=== PATIENT | male | born 1970 | race Caucasian/White ===

== ENCOUNTER 2023-03-14 09:32 | Inpatient (IN) | payer MEDICAID, SELFPAY ==
[2023-03-14 09:43] VITALS: BP 166/98; PULSE 91; RESP 22; TEMP 37.3; O2SAT 96
[2023-03-14] MEDS: LORazepam 2 mg/mL INJ 1 mL IM ×2 (10:04→18:34)
[2023-03-14 10:13] VITALS: RESP 20
--- NOTE | 2023-03-14 10:15 | PC.NURSE ---
Pt is cooperative with this RN and allowed nurse to give IM injection of ativan. Pt refused Geodon at this time. Pt is in green paper scrubs, no belongings at bedside. Security Gilberto and PSA Abdulkadir at bedside.
[2023-03-14 10:32] LABS: Basophils # 0.1 10^3/uL (0.0-0.1); Basophils % 0.5 %; Eosinophils % 0.2 %; Hematocrit 45.5 % (42.0-52.0); Hemoglobin 15.1 g/dL (11.7-16.6); Lymphocytes # 1.8 10^3/uL (0.8-4.8); Lymphocytes % 16.1 %; Mean Corpuscular HGB Conc 33.2 g/dL (30.0-36.0); Mean Corpuscular Hemoglobin 30.2 pg (28.0-34.0); Mean Platelet Volume 9.4 fL (7.4-10.4); Monocytes # 0.8 10^3/uL (0.2-0.9); Monocytes % 7.2 %; Neutrophils # 8.26 10^3/uL (1.8-7.7); Neutrophils % 75.7 %; Nucleated Red Blood Cells % 0 %; Platelet Count 232 10^3/cmm (130-400); Red Cell Distribution Width 12.7 % (12.1-15.1); White Blood Count 10.9 10^3/uL (4.0-10.0)
[2023-03-14 10:55] LABS: Alanine Aminotransferase 25 U/L (0-41); Albumin Level 3.9 g/dL (3.5-5.2); Alkaline Phosphatase 77 U/L (40-130); Anion Gap 18.5 (5-19); Aspartate Amino Transferase 28 U/L (0-40); Blood Urea Nitrogen 10 mg/dL (6-20); Calcium 8.7 mg/dL (8.5-10.5); Carbon Dioxide 19 mmol/L (22-29); Chloride 97 mmol/L (98-107); Globulin 2.8 g/dL (1.3-4.6); Glomerular Filtration Rate 88.6 mL/min (90-130); Glucose 98 mg/dL (65-115); Osmolality Calculated 271 mOsm/kg (285-295); Potassium 3.5 mmol/L (3.5-5.1); Sodium 131 mmol/L (136-145); Total Bilirubin 0.7 mg/dL (0.15-1.2); Total Protein 6.7 g/dL (6.6-8.7)
[2023-03-14 10:56] LABS: Acetaminophen < 5.0 ug/mL (10-30); Salicylate < 0.3 mg/dL (3-10)
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
--- NOTE | 2023-03-14 12:29 | PC.NURSE ---
Pt sleeping on left side. Pt has been quiet and asleep. PSA at bedside.
--- NOTE | 2023-03-14 12:30 | PC.NURSE ---
Pt sleeping on left side. PSA at bedside.
[2023-03-14 12:41] VITALS: BP 142/82; PULSE 84; RESP 18; TEMP 36.8; O2SAT 98
[2023-03-14 12:54] VITALS: BP 132/99; PULSE 93; RESP 17; TEMP 36.7; O2SAT 96
[2023-03-14 13:35] LABS: Add Urine Microscopic? NO; Charge for UA Resulting for Rev
[2023-03-14 13:43] LABS: Bilirubin Urine Neg (Negative); Blood Urine Neg (Negative); Glucose Urine UA Norm (Normal); Ketones Urine 2+ (Negative); Leukocyte Esterase Urine Negative (Negative); Nitrate Urine Negative (Negative); Protein Urine Neg (Negative); Urine Appearance Clear (CLEAR); Urine Color Yellow (Yellow); Urobilinogen Urine Norm (Negative); pH Urine 5 (5-7)
[2023-03-14 13:52] LABS: Amphetamines Screen Urine Negative (Negative); Barbiturates Screen Urine Negative (Negative); Benzodiazepines Screen Urine Positive (Negative); Cocaine Screen Urine Negative (Negative); Opiate Screen Urine Negative (Negative); PCP Screen Urine Negative (Negative); THC Screen Urine Positive (Negative)
[2023-03-14 14:00] VITALS: BP 154/79; PULSE 92; RESP 18; TEMP 36.9; O2SAT 99
[2023-03-14] MEDS: diphenhydrAMINE 50 mg/mL SDV 1mL IM (18:34)
[2023-03-14] MEDS: haloperidol inj 5 mg/mL INJ 1 mL IM (18:34)
[2023-03-14 19:40] VITALS: RESP 18
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
[2023-03-15 14:00] VITALS: BP 136/88; PULSE 75; RESP 18; TEMP 36.7; O2SAT 94
[2023-03-15] MEDS: nicotine 2 mg Gum BUCCAL (17:08)
[2023-03-15] MEDS: nicotine 21 mg Patch 1 PATCH TRANSDERMA (20:28)
[2023-03-15] MEDS: LORazepam 2 mg Tablet PO (20:34)
[2023-03-15] MEDS: diphenhydrAMINE 50 mg Capsule PO (20:35)
[2023-03-15] MEDS: haloperidol 5 mg Tablet PO (20:35)
[2023-03-15 20:56] VITALS: RESP 18
[2023-03-15 21:05] VITALS: BP 132/91; PULSE 76; RESP 18; TEMP 37; O2SAT 90
[2023-03-16 06:00] VITALS: RESP 18
[2023-03-16] MEDS: LORazepam 2 mg/mL INJ 1 mL IM (08:29)
[2023-03-16] MEDS: haloperidol inj 5 mg/mL INJ 1 mL IM (08:29)
[2023-03-16] MEDS: diphenhydrAMINE 50 mg/mL SDV 1mL IM (08:29)
[2023-03-16 14:00] VITALS: PULSE 16
[2023-03-16] MEDS: nicotine 21 mg Patch 1 PATCH TRANSDERMA (14:30)
[2023-03-16] MEDS: OLANZapine 5 mg ODT PO (15:37)
[2023-03-16] MEDS: hyDROXYzine 25 mg Capsule 50 MG PO (15:37)
--- NOTE | 2023-03-16 15:45 | PC.NURSE ---
pt in another pt room refused to leave when asked. pt yelling an requesting to leave administered prn vistaril and zyprexia.
--- NOTE | 2023-03-16 17:30 | W.PM.NPUPNS ---
Subjective NPU Subjective: Patient presents today continuing to be resistant to medication and continuing to have very poor impulse control. He has had episodes of cussing at staff and yelling and continues to report that he has no idea why he is here in the first place and why he cannot be allowed to leave the hospital. We talked some and tried to get him to consider an antipsychotic but he continues to refuse and we talked about the need for him to show improvement to avoid a 21-day hold this week. Mental Status Exam MSE Comments: This is an overweight versus obese white male in hospital scrubs with poor grooming grooming and eye contact. No abnormal movements except for psychomotor agitation. Uncooperative with exam in extreme distress. Speech was increased rate and volume. Mood not described, affect irritable. Thought process organized. Thought content: Patient did not answer questions around lethality but did demonstrate some aggression, there were no delusions reported but paranoia and possible persecutory and hyperreligious delusions noted. He did not answer questions surrounding hallucinations but did not appear to be attending to internal stimuli. Attention and concentration appeared limited and memory was unreliable but none were formally tested. He is alert and oriented to person. Insight, judgment and impulse control impaired. Vitals/I&O/Wt Last Vital Signs Temp 98 F 03/16/23 20:20 Pulse 56 L 03/16/23 20:20 Resp 16 03/16/23 20:20 BP 118/67 03/16/23 20:20 Pulse Ox 95 03/16/23 20:20 O2 Del Method Room Air 03/16/23 20:20 03/16/23 03/16/23 03/17/23 14:59 22:59 06:59 Intake Total 800 / 800 Balance 800 / 800 Weight last 48 hrs Weight 124.738 kg Data NPU 03/14/23 10:23 03/14/23 10:23 A&P Assessment and plan (1) Acute psychosis: (2) Suicidal ideation: (3) Hypertension: Plan The patient is a 3-year-old white male with no clear history of mental health challenges with a UDS positive for marijuana and benzodiazepines resistant to given a history and seeming possibly psychotic/delusional at this time. 1. Continue current medication. We will explore whether he will consider an antipsychotic. 2 Continue every 15 minute checks for safety. 3. Encourage individual, group and milieu therapies. 4. Encourage sober living treatment after discharge at the highest level of care to which he is willing to commit 5. Try to get collateral information. Involuntary Hold Information 96 Hour Hold: 96 Hour Involuntary Admission: Yes 96 Hour Hold Ending Date: 02/16/23 96 Hour Hold Ending Time: 00:01 Attestations NPU Medical Necessity Statement*: Inpatient hospitalization is medically necessary and deemed to be the clinically appropriate decision at this time. We will monitor/initiate medications and make changes as indicated. Likely length of stay of 3-5 days. Coding Level of Care Code Acute Code for Chg Fwd Diagnoses Acute psychosis F23 Suicidal ideation R45.851 Hypertension I10
[2023-03-16 20:20] VITALS: BP 118/67; PULSE 56; RESP 16; TEMP 36.6; O2SAT 95
[2023-03-17 06:00] VITALS: RESP 15
[2023-03-17] MEDS: nicotine 2 mg Gum BUCCAL (09:47)
[2023-03-17] MEDS: nicotine 21 mg Patch 1 PATCH TRANSDERMA (12:05)
--- NOTE | 2023-03-17 13:34 | W.PM.NPUPNS ---
Subjective NPU Subjective: Patient presented today reporting that he was feeling better. He spoke to this freelance copywriter as needed for the first time and it is possible that in his experience we are/were. We discussed his behavior over the past 3 days. Including the aggressiveness and nasty verbiage. He was projecting a position of always being kind to people and never hurting anyone and we discussed how divergent that was from his presentation. We additionally discussed his hyperreligious talk about [place] and there being some big hole up there where he was having some restoration meaning. It was hard for him to let go of that. He had no explanation for running naked though he tried to invoke a shower story. We discussed the 96-hour hold being up soon and the likelihood of a 21-day hold submission. He was resistant to medication. Mental Status Exam MSE Comments: This is an overweight versus obese white male in hospital scrubs with poor grooming grooming and somewhat improving eye contact. No abnormal movements except for resolving psychomotor agitation. More cooperative with exam in significantly less distress. Speech was increased rate and volume. Mood described as all right, affect less irritable. Thought process more organized. Thought content: Patient denied suicidal or homicidal ideation, there were no delusions reported but paranoia and possible persecutory and hyperreligious delusions noted. He denied auditory or visual hallucinations but some of the things he described great concerns for such. Attention and concentration appeared improving and memory was improving but still unreliable but none were formally tested. He is alert and oriented x3. Insight, judgment and impulse control limited. Vitals/I&O/Wt Last Vital Signs Temp 98 F 03/16/23 20:20 Pulse 56 L 03/16/23 20:20 Resp 15 03/17/23 06:00 BP 118/67 03/16/23 20:20 Pulse Ox 95 03/16/23 20:20 O2 Del Method Room Air 03/16/23 20:20 Weight last 48 hrs Weight 124.738 kg Data NPU 03/14/23 10:23 03/14/23 10:23 A&P Assessment and plan (1) Acute psychosis: (2) Suicidal ideation: (3) Hypertension: Plan The patient is a 3-year-old white male with no clear history of mental health challenges with a UDS positive for marijuana and benzodiazepines resistant to given a history and seeming possibly psychotic/delusional at this time. 1. Continue current medication. We will continue to offer an antipsychotic. 2 Continue every 15 minute checks for safety. 3. Encourage individual, group and milieu therapies. 4. Encourage sober living treatment after discharge at the highest level of care to which he is willing to commit 5. We will likely need to file for a 21-day hold tomorrow. Involuntary Hold Information 96 Hour Hold: 96 Hour Involuntary Admission: Yes 96 Hour Hold Ending Date: 02/16/23 96 Hour Hold Ending Time: 00:01 Attestations NPU Medical Necessity Statement*: Inpatient hospitalization is medically necessary and deemed to be the clinically appropriate decision at this time. We will monitor/initiate medications and make changes as indicated. Likely length of stay of 3-5 days. Coding Level of Care Code Acute Code for g Fwd Diagnoses Acute psychosis F23 Suicidal ideation R45.851 Hypertension I10
[2023-03-17 14:00] VITALS: BP 135/74; PULSE 73; RESP 18; TEMP 36.7; O2SAT 95
[2023-03-17 21:06] VITALS: BP 150/92; PULSE 80; RESP 18; O2SAT 96
[2023-03-18] MEDS: trazodone 50 mg Tablet PO (02:04)
[2023-03-18 06:00] VITALS: RESP 18
[2023-03-18] MEDS: nicotine 2 mg Gum BUCCAL ×2 (08:54→10:52)
--- NOTE | 2023-03-18 12:20 | W.PM.NPUPNS ---
Subjective NPU Subjective: Presented today reporting that he was doing better refills. We agreed that he was doing better than when he got here but still no explanation for his running naked and hyperreligious behavior. He reports he has had this previously but that he is treated it with vitamins. We discussed wanting to start a medication and he is resistant to that idea and we discussed him needing a little more time before being discharged medication or not and so we discussed that we would file an extension of his hold. Mental Status Exam MSE Comments: This is an overweight versus obese white male in hospital scrubs with limited grooming and somewhat improving eye contact. No abnormal movements except for resolving psychomotor agitation. More cooperative with exam in significantly less distress. Speech was increased rate and volume. Mood described as I think I am ready, affect somewhat less irritable. Thought process more organized. Thought content: Patient denied suicidal or homicidal ideation, there were no delusions reported but paranoia and possible persecutory and hyperreligious delusions noted. He denied auditory or visual hallucinations but some of the things he described great concerns for such. Attention and concentration appeared improving and memory was improving but still unreliable but none were formally tested. He is alert and oriented x3. Insight, judgment and impulse control limited. Vitals/I&O/Wt Last Vital Signs Temp 98.0 F 03/17/23 14:00 Pulse 80 03/17/23 21:06 Resp 18 03/18/23 06:00 BP 150/92 03/17/23 21:06 Pulse Ox 96 03/17/23 21:06 O2 Del Method Room Air 03/17/23 21:06 Weight last 48 hrs Weight 124.738 kg Data NPU 03/14/23 10:23 03/14/23 10:23 A&P Assessment and plan (1) Acute psychosis: (2) Suicidal ideation: (3) Hypertension: Plan The patient is a 3-year-old white male with no clear history of mental health challenges with a UDS positive for marijuana and benzodiazepines resistant to given a history and seeming possibly psychotic/delusional at this time. 1. Continue current medication. We will continue to offer an antipsychotic. 2 Continue every 15 minute checks for safety. 3. Encourage individual, group and milieu therapies. 4. Encourage sober living treatment after discharge at the highest level of care to which he is willing to commit 5. Filed for a 21-day hold. Involuntary Hold Information 96 Hour Hold: 96 Hour Involuntary Admission: Yes 96 Hour Hold Ending Date: 02/16/23 96 Hour Hold Ending Time: 00:01 Attestations NPU Medical Necessity Statement*: Inpatient hospitalization is medically necessary and deemed to be the clinically appropriate decision at this time. We will monitor/initiate medications and make changes as indicated. Likely length of stay of 3-5 days. Coding Level of Care Code Acute Code for Chg Fwd Diagnoses Acute psychosis F23 Suicidal ideation R45.851 Hypertension I10
[2023-03-18] MEDS: nicotine 21 mg Patch 1 PATCH TRANSDERMA (13:28)
[2023-03-18 14:00] VITALS: BP 165/98; PULSE 60; RESP 18; TEMP 36.4; O2SAT 97
[2023-03-18 19:55] VITALS: RESP 18
[2023-03-19 06:00] VITALS: RESP 18
--- NOTE | 2023-03-19 10:31 | PC.NURSE ---
Patient left unit at [address]
--- NOTE | 2023-03-19 13:48 | P.NPUPN_ITS ---
Subjective NPU Subjective: Patient presented today having gone to the court hearing earlier and expressing that he is willing to consider a medication to see if it might help with his psychotic presentation. We discussed the risks, benefits and alternatives of a trial of Abilify and he understood and agreed to proceed as is documented in this note. We continued to discuss his life and the challenges he has had thro ughout the years. Mental Status Exam MSE Comments: This is an overweight versus obese white male in hospital scrubs with limited grooming and somewhat improving eye contact. No abnormal movements except for resolving psychomotor agitation. More cooperative with exam in significantly less distress. Speech was increased rate and volume. Mood described as okay but understand your concerns, affect somewhat less irritable. Thought process more organized. Thought content: Patient denied suicidal or homicidal ideation, there were no delusions reported but paranoia and possible persecutory and hype rreligious delusions noted. He denied auditory or visual hallucinations but some of the things he described great concerns for such. Attention and concentration appeared improving and memory was improving but still unreliable but none were formally tested. He is alert and oriented x3. Insight, judgment and impulse control limited. Vitals/I&O/Wt Last Vital Signs Temp 97.5 F L 03/18/23 14:00 Pulse 60 03/18/23 14:00 Resp 18 03/19/23 06:00 BP 165/98 03/18/23 14:00 Pulse Ox 97 03/18/23 14:00 O2 Del Method Room Air 03/17/23 21:06 Data NPU 03/14/23 10:23 03/14/23 10:23 A&P Assessment and plan (1) Acute psychosis: (2) Suicidal ideation: (3) Hypertension: Plan The patient is a 3-year-old white male with no clear history of mental health challenges with a UDS positive for marijuana and benzodiazepines resistant to given a history and seeming possibly psychotic/delusional at this time. 1. Continue current medication. We will continue to offer an antipsychotic. Started Abilify 5 mg p.o. x1 today 03/19/2023 and 10 mg p.o. every morning moving forward. 2 Continue every 15 minute checks for safety. 3. Encourage individual, group and milieu therapies. 4. Encourage sober living treatment after discharge at the highest level of care to which he is willing to commit 5. Placed on a 21-day hold today 03/19/2023 Involuntary Hold Information 96 Hour Hold: 96 Hour Involuntary Admission: Yes 96 Hour Hold Ending Date: 02/16/23 96 Hour Hold Ending Time: 00:01 Attestations NPU Medical Necessity Statement*: Inpatient hospitalization is medically necessary and deemed to be the clinically appropriate decision at this time. We will monitor/initiate medications and make changes as indicated. Likely length of stay of 3-5 days. Coding Level of Care Code Acute Code for [facility] Fwd Diagnoses Acute psychosis F23 Suicidal ideation R45.851 Hypertension I10
[2023-03-19] MEDS: nicotine 21 mg Patch 1 PATCH TRANSDERMA (13:50)
[2023-03-19 14:00] VITALS: BP 164/98; PULSE 98; RESP 18; TEMP 36.9; O2SAT 95
[2023-03-19] MEDS: ARIPiprazole 10 mg Tablet 5 MG PO (18:21)
[2023-03-19 21:53] VITALS: BP 176/109; PULSE 75; RESP 18; O2SAT 96
[2023-03-19] MEDS: trazodone 50 mg Tablet PO (22:25)
[2023-03-20 06:00] VITALS: BP 162/99; PULSE 65; RESP 17; TEMP 36.6; O2SAT 97
--- NOTE | 2023-03-20 07:52 | P.NPUPN_ITS ---
Subjective NPU Subjective: Patient presented today reporting that he was doing better. He was inquiring about the Abilify that he had started and reports that at this point he has not had any specific side effects will be acknowledged that he was only 1 dose in. We discussed the considering the injection prior to leaving but that Dr. [place] would be here tomorrow and taking over the process. He was pleasant and ap preciative and denied any other issues. Mental Status Exam MSE Comments: This is an overweight versus obese white male in hospital scrubs with improving grooming and eye contact. No abnormal movements. More cooperative with exam in no acute distress. Speech was more normal rate and volume. Mood described as all right, affect congruent and euthymic. Thought process more organized. Thought content: Patient denied suicidal or homicidal ideation, there were no delusions reported or noted. He denied auditory or visual hallucinations. Attention and concentration appeared improving and memory was becoming morebreliable but none were formally tested. He is alert and oriented x3. Insight, judgment and impulse control limited, but improving. Vitals/I&O/Wt Last Vital Signs Temp 98.2 F 03/20/23 21:21 Pulse 78 03/20/23 21:21 Resp 18 03/20/23 21:21 BP 145/95 03/20/23 21:21 Pulse Ox 97 03/20/23 21:21 O2 Del Method Room Air 03/20/23 14:00 Data NPU 03/14/23 10:23 03/14/23 10:23 A&P Assessment and plan (1) Acute psychosis: (2) Suicidal ideation: (3) Hypertension: Plan The patient is a 3-year-old white male with no clear history of mental health challenges with a UDS positive for marijuana and benzodiazepines resistant to given a history and seeming possibly psychotic/delusional at this time. 1. Continue current medication. We will continue to offer an antipsychotic. Started Abilify 5 mg p.o. x1, 03/19/2023 and 10 mg p.o. every morning starting 03/20/2023. We will attempt to get on long-acting injectable. 2 Continue every 15 minute checks for safety. 3. Encourage individual, group and milieu therapies. 4. Encourage sober living treatment after discharge at the highest level of care to which he is willing to commit 5. Placed on a 21-day hold today 03/19/2023 Involuntary Hold Information 96 Hour Hold: 96 Hour Involuntary Admission: Yes 96 Hour Hold Ending Date: 02/16/23 96 Hour Hold Ending Time: 00:01 Attestations NPU Medical Necessity Statement*: Inpatient hospitalization is medically necessary and deemed to be the clinically appropriate decision at this time. We will monitor/initiate medications and make changes as indicated. Likely length of stay of 3-5 days. Coding Level of Care Code Acute Code for Chg Fwd Diagnoses Acute psychosis F23 Suicidal ideation R45.851 Hypertension I10
[2023-03-20] MEDS: lisinopril 10 mg Tablet PO (09:09)
[2023-03-20] MEDS: ARIPiprazole 10 mg Tablet 5 MG PO (09:09)
[2023-03-20] MEDS: nicotine 4 mg lozenge MUCOUS MEM (09:10)
[2023-03-20] MEDS: nicotine 21 mg Patch 1 PATCH TRANSDERMA (10:59)
[2023-03-20 14:00] VITALS: BP 126/77; PULSE 92; RESP 20; TEMP 36.7; O2SAT 95
[2023-03-20] MEDS: docusate sodium 100 mg Capsule PO (21:16)
[2023-03-20] MEDS: trazodone 50 mg Tablet PO (21:19)
[2023-03-20 21:21] VITALS: BP 145/95; PULSE 78; RESP 18; TEMP 36.8; O2SAT 97
[2023-03-21 06:00] VITALS: RESP 18
[2023-03-21] MEDS: nicotine 4 mg lozenge MUCOUS MEM ×5 (08:29→19:00)
[2023-03-21] MEDS: ARIPiprazole 10 mg Tablet 5 MG PO (08:29)
[2023-03-21] MEDS: lisinopril 10 mg Tablet PO (08:29)
[2023-03-21 14:00] VITALS: BP 139/87; PULSE 92; RESP 17; TEMP 36.4; O2SAT 94
--- NOTE | 2023-03-21 16:08 | PC.NURSE ---
out on the patio for group therapy
--- NOTE | 2023-03-21 16:53 | P.NPUPN_ITS ---
Subjective NPU Subjective: The patient is a 53-year-old white male admitted with acute psychosis and agitation. He had reported that he had many things to do when he leaves the NPU. He had reported having previously had mood fluctuations and reported having bigger plans when he left the hospital. He had reported having previous periods of decreased need for sleep and feeling as if his thoughts were moving quickly. He had reported no family history of bipolar disorder. He had reported no side effects to his Abilify at this time. He had reported no prior history of psychiatric treatment. Staff notes the patient was redirectable and stated that he was feeling better on Abilify. Mental Status Exam MSE Comments: This is an overweight versus obese white male in hospital scrubs with improving grooming and eye contact. No abnormal movements. More cooperative with exam in no acute distress. Speech was more normal rate, rhythm and volume. Mood described as good. His affect was mood congruent and euthymic. Thought process was more organized. Thought content: Patient denied suicidal or homicidal ideation, there were no delusions reported or noted. He denied auditory or visual hallucinations. Attention and concentration appeared improving. He is alert and oriented x3. Insight, judgment and impulse control are all limited, but improving. Vitals/I&O/Wt Last Vital Signs Temp 97.5 F L 03/21/23 14:00 Pulse 92 03/21/23 14:00 Resp 17 03/21/23 14:00 BP 139/87 03/21/23 14:00 Pulse Ox 94 03/21/23 14:00 O2 Del Method Room Air 03/20/23 14:00 Data NPU 03/14/23 10:23 03/14/23 10:23 A&P Assessment and plan (1) Acute psychosis: (2) Suicidal ideation: (3) Hypertension: Plan The patient is a 53-year-old white male with no clear history of mental health challenges with a UDS positive for marijuana and benzodiazepines initially resistant to given a history and seeming possibly psychotic/delusional at this time. 1. Increase Abilify to 10mg daily. We will attempt to get on long-acting injectable. 2 Continue every 15 minute checks for safety. 3. Encourage individual, group and milieu therapies. 4. Encourage sober living treatment after discharge at the highest level of care to which he is willing to commit 5. Placed on a 21-day hold today 03/19/2023 Involuntary Hold Information 96 Hour Hold: 96 Hour Involuntary Admission: Yes 96 Hour Hold Ending Date: 02/16/23 96 Hour Hold Ending Time: 00:01 Attestations NPU Medical Necessity Statement*: Inpatient hospitalization is medically necessary and deemed to be the clinically appropriate decision at this time. We will monitor/initiate medications and make changes as indicated. His likely length of stay is 3-5 days. Coding Level of Care Code Acute Code for [facility] Fwd Diagnoses Acute psychosis F23 Suicidal ideation R45.851 Hypertension I10
[2023-03-21] MEDS: trazodone 50 mg Tablet PO ×2 (19:54→21:15)
[2023-03-21 20:10] VITALS: BP 124/85; PULSE 72; RESP 18; TEMP 36.7; O2SAT 99
[2023-03-21] MEDS: nicotine 2 mg Gum BUCCAL (21:15)
[2023-03-22] MEDS: hyDROXYzine 25 mg Capsule 50 MG PO ×2 (01:41→12:40)
[2023-03-22] MEDS: nicotine 4 mg lozenge MUCOUS MEM ×2 (02:59→18:02)
[2023-03-22 06:00] VITALS: RESP 18
[2023-03-22] MEDS: lisinopril 10 mg Tablet PO (08:14)
[2023-03-22] MEDS: ARIPiprazole 10 mg Tablet PO (08:14)
[2023-03-22 08:35] VITALS: BP 147/83; PULSE 112
--- NOTE | 2023-03-22 08:35 | PC.NURSE ---
pt recieved scheduled lisinopril. pulse was 112 and BP was 147/83.
[2023-03-22] MEDS: nicotine 21 mg Patch 1 PATCH TRANSDERMA (08:58)
--- NOTE | 2023-03-22 10:34 | PC.NURSE ---
attended [facility] @ [id number]
[2023-03-22 14:00] VITALS: BP 149/95; PULSE 97; RESP 18; TEMP 36.3; O2SAT 97
[2023-03-22] MEDS: OLANZapine 5 mg ODT PO ×2 (15:37→20:41)
--- NOTE | 2023-03-22 15:37 | PC.NURSE ---
PRN ZYPREXA ZYDIS 5 MG GIVEN PO PER PT C/O FURTHER ANXIETY/AGITATION ALTHOUGH PATIENT IS CALM WHILE CONVERSING WITH STAFF, SMILING A LOT
[2023-03-22] MEDS: ARIPiprazole 10 mg Tablet 5 MG PO (17:03)
--- NOTE | 2023-03-22 17:03 | PC.NURSE ---
Addendum entered by Kylie Salcido RN 03/22/23 17:07: addendum: when pt was asked who he was talking to pt stated elmira, ya know elmira from [employer]. he is my grandpa. then proceeded to laugh. Original Note: pt was in room having a conversation with someone that was not present. pt was speaking out the window cussing and various mumbled words. When pt was
--- NOTE | 2023-03-22 17:11 | W.PM.NPUPNS ---
Subjective NPU Subjective: The patient is a 53-year-old white male admitted with acute psychosis and agitation. The patient continued to appear at times agitated and excessively driven while repeatedly asking that he had many things to do when he leaves here. He had reported compliance with his medication. He had continued to endorse that he was ready to work and continued to appear overly activated. He had reported having difficulties with falling asleep and had reported that his thoughts were not racing. He had repeatedly attempted to asked to go home and negotiate coming back in the morning as he stated that he had business to take care of at home. Mental Status Exam MSE Comments: This is an overweight versus obese white male in hospital scrubs with improving grooming and eye contact. No abnormal movements. More cooperative with exam in moderate distress.. Speech was more normal rate, rhythm and volume with increased productivity. Mood described as good. His affect was mood incongruent and somewhat irritable. Thought process was overly elaborative and tangential. Thought content: Patient denied suicidal or homicidal ideation, there were no delusions reported or noted. He did appear somewhat grandiose with some ideas of uniqueness and specialists appreciated. He denied auditory or visual hallucinations. Attention and concentration appeared improving. He is alert and oriented x3. Insight, judgment and impulse control are all limited, but improving. Vitals/I&O/Wt Last Vital Signs Temp 97.3 F L 03/22/23 14:00 Pulse 97 03/22/23 14:00 Resp 18 03/22/23 14:00 BP 149/95 03/22/23 14:00 Pulse Ox 97 03/22/23 14:00 O2 Del Method Room Air 03/21/23 20:10 Weight last 48 hrs Weight 111.221 kg Data NPU 03/14/23 10:23 03/14/23 10:23 A&P Assessment and plan (1) Acute psychosis: (2) Suicidal ideation: (3) Hypertension: Plan The patient is a 53-year-old white male with no clear history of mental health challenges with a UDS positive for marijuana and benzodiazepines initially resistant to given a history and seeming possibly psychotic/delusional at this time. 1. Increase Abilify to 15mg daily. We will attempt to get on long-acting injectable Abilify Maintena. 2 Continue every 15 minute checks for safety. 3. Encourage individual, group and milieu therapies. 4. Encourage sober living treatment after discharge at the highest level of care to which he is willing to commit 5. Placed on a 21-day hold today 03/19/2023 Involuntary Hold Information 96 Hour Hold: 96 Hour Involuntary Admission: Yes 96 Hour Hold Ending Date: 02/16/23 96 Hour Hold Ending Time: 00:01 Attestations NPU Medical Necessity Statement*: Inpatient hospitalization is medically necessary and deemed to be the clinically appropriate decision at this time. We will monitor/initiate medications and make changes as indicated. His likely length of stay is 3-6 days. Coding Level of Care Code Acute Code for Chg Fwd Diagnoses Acute psychosis F23 Suicidal ideation R45.851 Hypertension I10
[2023-03-22] MEDS: trazodone 50 mg Tablet PO (20:39)
[2023-03-22 20:42] VITALS: BP 130/84; PULSE 86; RESP 18; TEMP 36.7; O2SAT 95
[2023-03-23 06:00] VITALS: RESP 18
[2023-03-23] MEDS: lisinopril 10 mg Tablet PO (08:22)
[2023-03-23] MEDS: ARIPiprazole 10 mg Tablet 15 MG PO (08:22)
[2023-03-23] MEDS: nicotine 4 mg lozenge MUCOUS MEM ×5 (08:34→20:10)
[2023-03-23] MEDS: hyDROXYzine 25 mg Capsule 50 MG PO (11:16)
[2023-03-23 14:00] VITALS: BP 152/92; PULSE 81; RESP 20; TEMP 36.6; O2SAT 97
--- NOTE | 2023-03-23 16:02 | P.NPUPN_ITS ---
Subjective NPU Subjective: The patient is a 53-year-old white male admitted with acute psychosis and agitation. Patient had received as needed medication today. He had reported feeling frustrated at still being here. He had not been aggressive but continued to report frustration for years of being prevented from living his life the way that he wished. He had been seen by staff having conversations with people who had not been present. He had reported that he had someone named Xavier who was communicating with him. He had minimized racing thoughts. He had been able to socialize with others. He had reported some improvement in sleep. He denied any side effects from the Abilify and stated that he wanted to get better. Mental Status Exam MSE Comments: This is an overweight versus obese white male in hospital scrubs with improving grooming and eye contact. No abnormal movements. More cooperative with exam in moderate distress.. Speech had increase push, with normal volume and increased productivity. Mood described as good. His affect was intense and labile at this time. Thought process was overly elaborative and tangential. Thought content: Patient denied suicidal or homicidal ideation, there were no delusions reported or noted. He did continue to have overvalued ideas. He denied javan tory or visual hallucinations. Attention and concentration appeared improving. He is alert and oriented x3. Insight, judgment and impulse control are all limited, but improving. Vitals/I&O/Wt Last Vital Signs Temp 98.1 F 03/22/23 20:42 Pulse 86 03/22/23 20:42 Resp 18 03/23/23 06:00 BP 130/84 03/22/23 20:42 Pulse Ox 95 03/22/23 20:42 O2 Del Method Room Air 03/21/23 20:10 Weight last 48 hrs Weight 111.221 kg Data NPU 03/14/23 10:23 03/14/23 10:23 A&P Assessment and plan (1) Acute psychosis: (2) Suicidal ideation: (3) Hypertension: Plan The patient is a 53-year-old white male with no clear history of mental health challenges with a UDS positive for marijuana and benzodiazepines initially resistant to given a history and seeming possibly psychotic/delusional at this time. 1. Continue Abilify 15mg daily. Abilify maintena IM 400mg today. 2 Continue every 15 minute checks for safety. 3. Encourage individual, group and milieu therapies. 4. Encourage sober living treatment after discharge at the highest level of care to which he is willing to commit 5. Placed on a 21-day hold today 03/19/2023 Involuntary Hold Information 96 Hour Hold: 96 Hour Involuntary Admission: Yes 96 Hour Hold Ending Date: 02/16/23 96 Hour Hold Ending Time: 00:01 Attestations NPU Medical Necessity Statement*: Inpatient hospitalization is medically necessary and deemed to be the clinically appropriate decision at this time. We will monitor/initiate medications and make changes as indicated. His likely length of stay is 3-6 days. Coding Level of Care Code Acute Code for Chg Fwd Diagnoses Acute psychosis F23 Suicidal ideation R45.851 Hypertension I10
[2023-03-23] MEDS: ARIPiprazole Maintena 400 MG IM (18:00)
[2023-03-23] MEDS: trazodone 50 mg Tablet PO (20:10)
[2023-03-23] MEDS: OLANZapine 5 mg ODT PO (20:10)
[2023-03-23 22:00] VITALS: BP 158/93; PULSE 88; RESP 16; TEMP 36.8; O2SAT 97
[2023-03-24 06:00] VITALS: RESP 18
[2023-03-24] MEDS: ARIPiprazole 10 mg Tablet 15 MG PO (09:45)
[2023-03-24] MEDS: lisinopril 10 mg Tablet PO (09:45)
[2023-03-24] MEDS: nicotine 4 mg lozenge MUCOUS MEM ×4 (10:47→19:51)
[2023-03-24 14:00] VITALS: BP 164/98; PULSE 100; RESP 20; TEMP 36.4; O2SAT 95
[2023-03-24] MEDS: ibuprofen 600 mg Tablet PO ×2 (14:19→20:51)
[2023-03-24] MEDS: OLANZapine 5 mg ODT PO ×2 (14:21→19:51)
--- NOTE | 2023-03-24 17:03 | P.NPUPN_ITS ---
Subjective NPU Subjective: The patient is a 53-year-old white male admitted with acute psychosis and agitation. The patient had reported tolerating his Abilify Maintena. He had been redirectable on the unit. He had had improved sleep. He reported wanting to get help and leave here eventually. He had been less distracted by his thoughts and stated that he was feeling less irritable. He denied having any thoughts that were racing. Mental Status Exam MSE Comments: This is an overweight versus obese white male in hospital scrubs with improving grooming and eye contact. No abnormal movements. More cooperative with exam in moderate distress.. Speech had less push in his speech today with normal volume and normal productivity. Mood described as good. His affect was brighter. Thought process was more focused and linear. Thought content: Patient denied suicidal or homicidal ideation, there were no delusions reported or noted. There was a decrease in grandiosity. He denied auditory or visual hallu cinations. Attention and concentration appeared improving. He is alert and oriented x3. Insight, judgment and impulse control appear to be improving.. Vitals/I&O/Wt Last Vital Signs Temp 97.6 F 03/24/23 14:00 Pulse 100 03/24/23 14:00 Resp 20 H 03/24/23 14:00 BP 164/98 03/24/23 14:00 Pulse Ox 95 03/24/23 14:00 O2 Del Method Room Air 03/23/23 22:00 03/24/23 03/24/23 03/24/23 06:59 14:59 22:59 Intake Total 400 / 400 Balance 400 / 400 Data NPU 03/14/23 10:23 03/14/23 10:23 A&P Assessment and plan (1) Acute psychosis: (2) Suicidal ideation: (3) Hypertension: Plan The patient is a 53-year-old white male with no clear history of mental health challenges with a UDS positive for marijuana and benzodiazepines initially resistant to given a history and seeming possibly psychotic/delusional at this time. 1. Continue Abilify 15mg daily. Abilify maintena IM 400mg given on 03/23/2023. 2 Continue every 15 minute checks for safety. 3. Encourage individual, group and milieu therapies. 4. Encourage sober living treatment after discharge at the highest level of care to which he is willing to commit 5. Placed on a 21-day hold today 03/19/2023 Involuntary Hold Information 96 Hour Hold: 96 Hour Involuntary Admission: Yes 96 Hour Hold Ending Date: 02/16/23 96 Hour Hold Ending Time: 00:01 Attestations NPU Medical Necessity Statement*: Inpatient hospitalization is medically necessary and deemed to be the clinically appropriate decision at this time. We will monitor/initiate medications and make changes as indicated. His likely length of stay is 2-4 days. Coding Level of Care Code Acute Code for Chg Fwd Diagnoses Acute psychosis F23 Suicidal ideation R45.851 Hypertension I10
[2023-03-24] MEDS: hyDROXYzine 25 mg Capsule 50 MG PO (20:51)
[2023-03-24] MEDS: trazodone 50 mg Tablet PO (20:51)
[2023-03-25 06:00] VITALS: BP 133/71; PULSE 60; RESP 16; TEMP 36.5; O2SAT 98
[2023-03-25] MEDS: nicotine 4 mg lozenge MUCOUS MEM ×6 (07:29→20:40)
[2023-03-25] MEDS: lisinopril 10 mg Tablet PO (08:54)
[2023-03-25] MEDS: ARIPiprazole 10 mg Tablet 15 MG PO (08:54)
[2023-03-25] MEDS: ibuprofen 600 mg Tablet PO (11:40)
[2023-03-25] MEDS: hyDROXYzine 25 mg Capsule 50 MG PO (13:20)
[2023-03-25 14:00] VITALS: BP 159/73; PULSE 95; RESP 18; TEMP 36.6; O2SAT 98
--- NOTE | 2023-03-25 16:45 | P.NPUPN_ITS ---
Subjective NPU Subjective: The patient is a 53-year-old white male admitted with acute psychosis and agitation. The patient reported no thoughts of hurting himself or others. He reported no side effects from his medication. He had reported improved energy and stated that he had been sleeping better. Patient did not require any as needed medications today. He had expressed desire to briefly go and reside in [facility] and was agreeable to receiving outpatient follow-up. He had reported that his thoughts were racing less. Staff notes the patient had appeared at times to be excessively active and had periods of poor frustration but was not engaged in any destruction of property and did not require any m edicines for agitation today. Mental Status Exam MSE Comments: This is an overweight versus obese white male in hospital scrubs with improving grooming and eye contact. No abnormal movements. More cooperative with exam in moderate distress.. Speech had normal rate and normal volume and normal produ ctivity. Mood described as all right.. His affect was slightly restricted today. Thought process was more focused and linear. Thought content: Patient denied suicidal or homicidal ideation, there were no delusions reported or noted. There was no evidence of over valued ideas. He denied auditory or visual hallucinations. Attention and concentration appeared improving. He is alert and oriented x3. Insight, judgment and impulse control appear to be improving.. Vitals/I&O/Wt Last Vital Signs Temp 97.9 F 03/25/23 14:00 Pulse 95 03/25/23 14:00 Resp 18 03/25/23 14:00 BP 159/73 03/25/23 14:00 Pulse Ox 98 03/25/23 14:00 O2 Del Method Room Air 03/25/23 06:00 Data NPU 03/14/23 10:23 03/14/23 10:23 A&P Assessment and plan (1) Acute psychosis: (2) Suicidal ideation: (3) Hypertension: Plan The patient is a 53-year-old white male with no clear history of mental health challenges with a UDS positive for marijuana and benzodiazepines initially resistant to given a history and seeming possibly psychotic/delusional at this time. 1. Continue Abilify 15mg daily. Abilify maintena IM 400mg given on 03/23/2023. 2 Continue every 15 minute checks for safety. 3. Encourage individual, group and milieu therapies. 4. Encourage sober living treatment after discharge at the highest level of care to which he is willing to commit 5. Patient appears improved and is likely to be discharged tomorrow. Involuntary Hold Information 96 Hour Hold: 96 Hour Involuntary Admission: Yes 96 Hour Hold Ending Date: 02/16/23 96 Hour Hold Ending Time: 00:01 Attestations NPU Medical Necessity Statement*: Inpatient hospitalization is medically necessary and deemed to be the clinically appropriate decision at this time. We will monitor/initiate medications and make changes as indicated. His likely length of stay is 1-2 days. Coding Level of Care Code Acute Code for Chg Fwd Diagnoses Acute psychosis F23 Suicidal ideation R45.851 Hypertension I10
[2023-03-25] MEDS: OLANZapine 5 mg ODT PO ×2 (16:51→20:40)
[2023-03-25 22:00] VITALS: BP 144/87; PULSE 88; RESP 16; O2SAT 95
[2023-03-26 06:00] VITALS: RESP 18
[2023-03-26] MEDS: nicotine 4 mg lozenge MUCOUS MEM ×4 (07:32→13:32)
[2023-03-26] MEDS: ARIPiprazole 10 mg Tablet 15 MG PO (08:37)
[2023-03-26] MEDS: lisinopril 10 mg Tablet PO (08:37)
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
[2023-03-26 13:55] VITALS: RESP 18
[2023-03-26 13:57] VITALS: BP 144/87; PULSE 88; RESP 18; TEMP 36.6; O2SAT 95
== END 2023-03-26 14:16 | disposition home or self-care (01) | DRG 885 ==
LOC: ER 11:20 → NP 12:12
PROVIDERS: Admitting Provider Psychiatry & Neurology Psychiatry; Emergency Provider Family Medicine; Visit Provider Psychiatry & Neurology Psychiatry
DX: F23 Brief psychotic disorder (principal); R45.851 Suicidal ideations; F12.90 Cannabis use, unspecified, uncomplicated; F10.90 Alcohol use, unspecified, uncomplicated; I10 Essential (primary) hypertension; R45.1 Restlessness and agitation
CPT/HCPCS: 36415; 80053; 80306; 80307; 81003; 85025; 96372; 97150; 97165; 99238; 99285; J1200; J1630; J2060; Q0163